=== PATIENT | male | born 1990 ===

== ENCOUNTER 2018-01-15 13:57 | Emergency (ER) | payer OTHER ==
[2018-01-15] MEDS ORDERED: IPRATROPIUM BROM 0.5MG/2.5ML ONE (14:42)
[2018-01-15] MEDS ORDERED: ALBUTEROL 2.5 MG/3 ML NEB SOL ONE (14:42)
--- NOTE | 2018-01-15 15:41 | RAD REPORT ---
EXAM DESCRIPTION: Isela Badillo (2 Views)01/15/2018 3:29 pm CLINICAL HISTORY: Cough COMPARISON: None FINDINGS: The lungs appear clear of acute infiltrate. The heart is normal size IMPRESSION: No acute abnormalities displayed
--- NOTE | 2018-01-15 15:59 | ER ---
Nurse's Notes [facility] Name: Baudilio Campos Age: 27 yrs Sex: Male : 1990 Arrival Date: 01/15/2018 Time: 14:01 Bed 26 Private MD: Diagnosis: Asthma Presentation: 01/15 14:16 Presenting complaint: Patient states: "Since Thursday I've been experiencing difficulty aj1 breathing. Today it got bad, I've been congested. I've been getting chest pain. I took my emergency inhaler and that helped a little bit, but it didn't solve everything. IT doesn't feel like I can get a full breath." Reports dry cough, dizziness. Denies fever. Transition of care: patient was not received from another setting of care. Onset of symptoms was January 12, 2018. Risk Assessment: Do you want to hurt yourself or someone else? Patient reports no desire to harm self or others. Initial Sepsis Screen: Does the patient meet any 2 criteria? HR > 90 bpm. No. Patient's initial sepsis screen is negative. Does the patient have a suspected source of infection? Yes: Productive cough/pneumonia. Care prior to arrival: None. 14:16 Method Of Arrival: Ambulatory aj1 14:16 Acuity: ARELI 3 aj1 Triage Assessment: 14:19 General: Appears in no apparent distress. comfortable, Behavior is calm, cooperative, aj1 appropriate for age. Pain: Complains of pain in chest Pain currently is 3 out of 10 on a pain scale. Neuro: Level of Consciousness is awake, alert, obeys commands. Cardiovascular: Reports chest pain, Patient's skin is warm and dry. Respiratory: Reports shortness of breath cough that is Onset: The symptoms/episode began/occurred 2 days ago, the patient has mild shortness of breath. Historical: - Allergies: 14:19 shrimp; aj1 14:19 cockroaches; aj1 14:19 cats; aj1 - Home Meds: 14:19 Advair Diskus 250-50 mcg/dose Inhl dsdv 1 puff 2 times per day [Active]; montelukast 10 aj1 mg oral tab 1 tab once daily [Active]; - PMHx: 14:19 Asthma; aj1 - Immunization history:: Flu vaccine is up to date. - Social history:: Smoking status: Patient/guardian denies using tobacco, Patient/guardian denies using alcohol, street drugs, The patient lives with family. - Ebola Screening: : Patient denies travel to an Ebola-affected area in the 21 days before illness onset. - Family history:: not pertinent. Screenin:42 Abuse screen: Denies threats or abuse. Denies injuries from another. Nutritional kr2 screening: No deficits noted. Tuberculosis screening: No symptoms or risk factors identified. Fall Risk None identified. Assessment: 14:40 General: Appears in no apparent distress. comfortable, well groomed, well developed, kr2 well nourished, Behavior is calm, cooperative, appropriate for age. Pain: Denies pain. Neuro: Level of Consciousness is awake, alert, obeys commands, Oriented to person, place, time, situation, Appropriate for age. Cardiovascular: Rhythm is regular. Respiratory: Airway is patent Respiratory effort is even, unlabored, Respiratory pattern is regular, symmetrical, Breath sounds are clear bilaterally. the patient has mild shortness of breath. GI: Abdomen is flat, non-distended. EENT: Oral mucosa is moist. Derm: Skin is intact, is healthy with good turgor, Skin is pink, warm \\T\\ dry. Musculoskeletal: Circulation, motion, and sensation intact. 15:45 Reassessment: Patient appears in no apparent distress at this time. Patient and/or kr2 family updated on plan of care and expected duration. Pain level reassessed. Patient is alert, oriented x 3, equal unlabored respirations, skin warm/dry/pink. Patient states feeling better. Vital Signs: 14:19 BP 145 / 87; Pulse 107; Resp 20; Temp 98.6; Pulse Ox 99% on R/A; Weight 79.38 kg (R); aj1 Height 5 ft. 8 in. (172.72 cm) (R); Pain 3/10; 16:11 BP 138 / 74; Pulse 103; Resp 18; Pulse Ox 99% on R/A; kr2 14:19 Body Mass Index 26.61 (79.38 kg, 172.72 cm) aj1 ED Course: 14:01 Patient arrived in ED. tw3 14:18 Triage completed. aj1 14:19 Arm band placed on Patient placed in an exam room. aj1 14:24 Krishna Hurtado MD is Attending Physician. ma2 14:40 Jackelin Paulino, RN is Primary Nurse. kr2 14:42 Patient has correct armband on for positive identification. Pulse ox on. NIBP on. Door kr2 closed. Warm blanket given. Head of bed elevated. 15:29 Chest Pa And Lat (2 Views) XRAY In Process Unspecified. EDMS 16:12 No provider procedures requiring assistance completed. Patient did not have IV access kr2 during this emergency room visit. Administered Medications: 14:36 Drug: Albuterol - atroVENT (3:1) (2.5 mg - 0.5 mg) 3 ml Route: Nebulizer; kr2 15:15 Follow up: Response: No adverse reaction; Marked relief of symptoms kr2 Outcome: 15:58 Discharge ordered by . ma2 16:12 Discharged to home ambulatory. kr2 16:12 Condition: good 16:12 Discharge instructions given to patient, Instructed on discharge instructions, follow up and referral plans. medication usage, Demonstrated understanding of instructions, follow-up care, medications, Prescriptions given X 2. 16:12 Patient left the ED. kr2 Signatures: Dispatcher [employer] EDMS Mamta Doherty, RN RN aj1 Dulce Osuna tw3 Jackelin Paulino, RN RN kr2 Krishna Hurtado MD MD ma2
--- NOTE | 2018-01-15 15:59 | EDPHYS ---
Physician Documentation [facility] Name: Baudilio Campos Age: 27 yrs Sex: Male : 1990 Arrival Date: 01/15/2018 Time: 14:01 Bed 26 Private MD: ED Physician Krishna Hurtado HPI: 01/15 14:33 This 27 yrs old Male presents to ER via Ambulatory with complaints of Dizziness, ma2 Breathing Difficulty. 14:33 Onset: The symptoms/episode began/occurred gradually, 2 day(s) ago. ma2 14:34 Onset: The symptoms/episode began/occurred gradually, 2 day(s) ago. Associated signs ma2 and symptoms: Pertinent positives:. Associated signs and symptoms: Pertinent positives: Pertinent negatives: abdominal pain, agitation, blurred vision, chest pain, combativeness, diaphoresis, head injury, nausea, near-syncope, palpitations, shortness of breath, tingling. Severity of symptoms: At their worst the symptoms were moderate in the emergency department the symptoms are unchanged. The patient has experienced similar episodes in the past. Historical: - Allergies: 14:19 shrimp; aj1 14:19 cockroaches; aj1 14:19 cats; aj1 - Home Meds: 14:19 Advair Diskus 250-50 mcg/dose Inhl dsdv 1 puff 2 times per day [Active]; montelukast 10 aj1 mg oral tab 1 tab once daily [Active]; - PMHx: 14:19 Asthma; aj1 - Immunization history:: Flu vaccine is up to date. - Social history:: Smoking status: Patient/guardian denies using tobacco, Patient/guardian denies using alcohol, street drugs, The patient lives with family. - Ebola Screening: : Patient denies travel to an Ebola-affected area in the 21 days before illness onset. - Family history:: not pertinent. ROS: 14:34 Constitutional: Negative for fever, chills, and weight loss, ENT: Negative for injury, ma2 pain, and discharge, Cardiovascular: Negative for chest pain, palpitations, and edema, Abdomen/GI: Negative for abdominal pain, nausea, diarrhea, and constipation, Allergy/Immunology: Negative for hives, rash, and allergies, Endocrine: Negative for neck swelling, polydipsia, polyuria, polyphagia, and marked weight changes. 14:34 Respiratory: Positive for cough, Negative for dyspnea on exertion, orthopnea, shortness of breath, sputum production. 14:34 All other systems are negative. Exam: 14:34 Constitutional: This is a well developed, well nourished patient who is awake, alert, ma2 and in no acute distress. Eyes: Pupils equal round and reactive to light, extra-ocular motions intact. Lids and lashes normal. Conjunctiva and sclera are non-icteric and not injected. Cornea within normal limits. Periorbital areas with no swelling, redness, or edema. 14:34 Chest/axilla: Normal chest wall appearance and motion. Nontender with no deformity. No lesions are appreciated. Cardiovascular: Regular rate and rhythm with a normal S1 and S2. No gallops, murmurs, or rubs. Normal PMI, no JVD. No pulse deficits. Abdomen/GI: Soft, non-tender, with normal bowel sounds. No distension or tympany. No guarding or rebound. No evidence of tenderness throughout. MS/ Extremity: Pulses equal, no cyanosis. Neurovascular intact. Full, normal range of motion. Neuro: Awake and alert, GCS 15, oriented to person, place, time, and situation. Cranial nerves II-XII grossly intact. Motor strength 5/5 in all extremities. Sensory grossly intact. Cerebellar exam normal. Normal gait. 14:34 Respiratory: the patient does not display signs of respiratory distress, Respirations: normal, Breath sounds: increased expiratory phase no wheezes. Vital Signs: 14:19 BP 145 / 87; Pulse 107; Resp 20; Temp 98.6; Pulse Ox 99% on R/A; Weight 79.38 kg (R); aj1 Height 5 ft. 8 in. (172.72 cm) (R); Pain 3/10; 16:11 BP 138 / 74; Pulse 103; Resp 18; Pulse Ox 99% on R/A; kr2 14:19 Body Mass Index 26.61 (79.38 kg, 172.72 cm) aj1 MDM: 14:24 Patient medically screened. ma2 14:34 Differential diagnosis: asthma, copd, cap, bronchitis. ma2 15:58 Data reviewed: vital signs, nurses notes, radiologic studies. Counseling: I had a ma2 detailed discussion with the patient and/or guardian regarding: the historical points, exam findings, and any diagnostic results supporting the discharge/admit diagnosis, the presence of at least one elevated blood pressure reading (>120/80) during this emergency department visit, the need for outpatient follow up. Response to treatment: the patient's symptoms have resolved after treatment. 01/15 14:31 Order name: Chest Pa And Lat (2 Views) XRAY; Complete Time: 15:53 ma2 Administered Medications: 14:36 Drug: Albuterol - atroVENT (3:1) (2.5 mg - 0.5 mg) 3 ml Route: Nebulizer; kr2 15:15 Follow up: Response: No adverse reaction; Marked relief of symptoms kr2 Disposition: 01/15/18 15:58 Discharged to Home. Impression: Asthma. - Condition is Stable. - Prescriptions for Tylenol- Codeine #3 300-30 mg Oral Tablet - take 2 tablet by ORAL route every 6 hours As needed; 6 tablet. Albuterol Sulfate 90 mcg/actuation - inhale 1-2 puff by INHALATION route every 4-6 hours; 1 Inhaler. - Medication Reconciliation Form, Thank You Letter, Antibiotic Education, Prescription Opioid Use form. - Follow up: Private Physician; When: Tomorrow; Reason: Continuance of care. Signatures: Dispatcher [employer] EDMamta Casiano RN RN aj1 Jackelin Paulino RN RN kr2 Krishna Hurtado MD MD ma2 Corrections: (The following items were deleted from the chart) 16:12 15:58 01/15/2018 15:58 Discharged to Home. Impression: Asthma. Condition is Stable. kr2 Forms are Medication Reconciliation Form, Thank You Letter, Antibiotic Education, Prescription Opioid Use. Follow up: Private Physician; When: Tomorrow; Reason: Continuance of care. ma2
== END 2018-01-15 16:12 | disposition home or self-care (01) ==
LOC: ER 13:57
DX: J45.909 Unspecified asthma, uncomplicated (principal); Z79.51 Long term (current) use of inhaled steroids; Z79.899 Other long term (current) drug therapy
CPT/HCPCS: 71046; 94640; 99284